=== PATIENT | female | born 1975 | race Caucasian/White ===

== ENCOUNTER → 2019-04-06 14:35 | Outpatient (CLI) | payer OTHER, SELFPAY ==
[2019-04-06 15:27] LABS: B Type Natriuretic Peptide < 100 (<100)
== END ==
PROVIDERS: PCP Nurse Practitioner Gerontology; Visit Provider Physician Assistant
DX: R60.0 Localized edema (principal)
CPT/HCPCS: 36415; 83880

== ENCOUNTER 2019-12-14 11:10 | Emergency (ER) | payer OTHER, SELFPAY ==
[2019-12-14 12:06] VITALS: BP 136/90; PULSE 76; RESP 13; TEMP 37; O2SAT 100
[2019-12-14 12:35] LABS: RBC Urine None Seen (0-5/HPF)
[2019-12-14 13:01] LABS: Bacteria Urine Many (>30); Culture Indicated Urine Specimen Cultured; Squamous Epithelial Cell Urine 1-5 /HPF (0-5/HPF); WBC Urine 1-5/HPF (0-5/HPF)
--- NOTE | 2019-12-14 13:17 | ED.FEMALEGU ---
HPI - Female Genitourinary General Chief complaint: Urogenital-Female Stated complaint: pelvic/ abdominal pain Time Seen by Provider: 12/14/19 12:58 Source: patient Mode of arrival: Ambulatory Limitations: no limitations History of Present Illness HPI Narrative: PATIENT IS A 44-YEAR-OLD FEMALE WHO PRESENTS WITH RIGHT-SIDED FLANK PAIN AND URINARY FREQUENCY. SHE FEELS LIKE SHE HAS INFECTION. THE LAST MONTH OR SO she has had left-sided flank pain which has felt like previous kidney stones. She says that pain has subsided significantly. She doesn't feel like it's there anymore she is not sure if she passed a kidney stone or not. However over the last 3 days she has had worsening right-sided flank pain. Pain does not radiate to her abdomen she has no abdominal pain no fever sweats or chills. MD Complaint: UTI Female Urogenital Radiation: R Flank Severity: mild Quality: Aching Duration: intermittent Relieving factors: none Related Data Home Medications Medication Instructions Recorded Confirmed amlodipine 10 mg tablet 10 mg PO DAILY 04/06/19 04/06/19 lisinopril 20 mg tablet 40 mg PO DAILY 04/06/19 04/06/19 norethindrone acetate-ethinyl 1 tab PO DAILY 04/06/19 04/06/19 estradiol 1.5 mg-30 mcg tablet Previous Rx's Medication Instructions Recorded sulfamethoxazole-trimethoprim 1 tab PO BID 7 Days #14 tab 12/14/19 [Bactrim DS] Allergies Allergy/AdvReac Type Severity Reaction Status Date / Time amoxicillin [AMOXICILLIN] Allergy Intermediate RASH Verified 04/06/19 13:41 cephalexin [CEPHALEXIN] Allergy Intermediate Rash Verified 04/06/19 13:41 ciprofloxacin [CIPROFLOXACIN] Allergy Intermediate RASH Verified 04/06/19 13:41 hydromorphone [HYDROMORPHONE] Allergy Mild Intractable Verified 04/06/19 13:41 nausea/emesis morphine [MORPHINE] Allergy Mild Instractable Verified 04/06/19 13:41 nausea Review of Systems Review of Systems Narrative: GENERAL: Denies chills, fatigue, malaise, fever, sweats, travel HEENT: Denies sinus pain, ear pain, sore throat, difficulty swallowing, neck pain RESPIRATORY: Denies dyspnea, cough, wheezing, hemoptysis, sputum. CARDIOVASCULAR: Denies chest pain, palpitations, orthopnea, edema GASTROINTESTINAL: Denies nausea, vomiting, abdominal pain, diarrhea, constipation, melena. : See HPI MUSCULOSKELETAL: Denies weakness, joint pain, or bony pain SKIN: No rash, no erythema, no pruritus NEUROLOGIC: Denies weakness, dizziness, headache, numbness, change in speech, confusion PSYCHIATRIC: No concerning psychosocial issues. 12 point review of systems is negative except for those stated above and HPI Patient History Medical History Hypertension (Acute) Nephrolithiasis (Acute) Ureterolithiasis (Acute) Substance Use Type: does not use Exam Initial Vital Signs Initial Vital Signs: Vital Signs Temperature 98.6 F 12/14/19 12:06 Pulse Rate 76 12/14/19 12:06 Respiratory Rate 13 12/14/19 12:06 Blood Pressure 136/90 12/14/19 12:06 Pulse Oximetry 100 12/14/19 12:06 GENERAL: Well-appearing, well-nourished and in no acute distress. HEENT: Head atraumatic,EOMI, pupils reactive CARDIOVASCULAR: Regular rate and rhythm without murmurs, rubs or gallops. RESPIRATORY: Breath sounds equal bilaterally, no wheezes rales or rhonchi. ABDOMEN: Soft, nontender. Normoactive bowel sounds all 4 quadrants. No guarding or rebound. RECTAL: Hemoccult-positive, no hemorrhoids, nontender : Mild right CVA tenderness no left CVA tenderness EXTREMITIES: Normal range of motion, no clubbing or edema. Neurovascularly intact NEUROLOGICAL: Alert and oriented x4.Normal gait and speech. SKIN: Warm, dry, no laceration, no petechiae, no rashes or lesions. Course Orders Ordered: ED Orders 12/14/19 12:00 Urine Culture Stat Urine Microscopic Stat Vital Signs Vital signs: Vital Signs - 8 hr 12/14/19 12:06 12/14/19 13:24 Temperature 98.6 F Pulse Rate 76 80 Respiratory Rate 13 16 Blood Pressure 136/90 Blood Pressure [Right Arm] 137/95 H Pulse Oximetry 100 98 MDM - Female Genitourinary Lab Data Attestation: I reviewed the patient's lab results. Labs: Lab Results 12/14/19 Range/Units 12:00 Urine RBC None seen (0-5/HPF) Urine WBC 1-5/hpf (0-5/HPF) Ur Squamous Epith Cells 1-5 /hpf (0-5/HPF) Urine Bacteria Many (>30) H (None) Ur Culture Indicated? Specimen cultured Point of Care Testing Test Results Negative Urine Dip Bedside Urine Glucose Negative Bedside Urine Bilirubin - Negative Bedside Urine Ketone - Negative Urine Specific [place] 1.010 Bedside Urine Occult Blood +/- Bedside Urine pH 6.0 Bedside Urine Protein - Negative Bedside Urine Urobilinogen - Negative Bedside Urine Nitrite - Negative Bedside Urine Leukocytes ++ 125 Esterase MDM Narrative Medical decision making narrative: Patient overall appears well vitals are within normal limits she is minimally tender on the right side she has significant leukocytes in her urine signs and symptoms consistent with infection although she does not appear septic. I discussed with her possible further workup in the emergency department versus close outpatient follow-up. At this time she agrees and requests to have conservative is treatment with antibiotics only and to return only if symptoms are getting worse. She is currently trying to switch PCPs, but think should be able to get in next week. Discharge Plan Departure Patient Disposition: Home Clinical Impression: UTI (urinary tract infection) Qualifiers: Urinary tract infection type: acute cystitis Hematuria presence: without hematuria Qualified Code(s): N30.00 - Acute cystitis without hematuria Discharge Date/Time: 12/14/19 13:44 Instructions: DI for Urinary Tract Infection (UTI) Activity Restrictions/Additional Instructions: *You have been diagnosed with hypertension UTI *What to do: Increase fluid intake pain control as needed at home *Continue to take medications as directed Bactrim 1 tablet twice a day for 7 days *Follow up with your primary care provider in 2-3 days *Return to ER if you should have increasing pain fever persistent nausea or vomiting or any new, worsening or concerning symptoms Prescriptions: New sulfamethoxazole-trimethoprim [Bactrim DS] 800-160 mg tablet 1 tab PO BID 7 Days Qty: 14 RF: 0 No Action amlodipine 10 mg tablet 10 mg PO DAILY RF: 0 Lucille 1.5/30 (21) 1.5-30 mg-mcg tablet 1 tab PO DAILY RF: 0 lisinopril 20 mg tablet 40 mg PO DAILY RF: 0 Referrals: Rani Donato ARNP [Primary Care Provider] - Max Fernandez MD [Family Provider] -
[2019-12-14 13:24] VITALS: BP 137/95; PULSE 80; RESP 16; O2SAT 98
== END 2019-12-14 13:44 | disposition home or self-care (01) ==
PROVIDERS: Emergency Provider Emergency Medicine; Family Provider Internal Medicine; PCP Nurse Practitioner Gerontology
DX: N30.00 Acute cystitis without hematuria (principal)
CPT/HCPCS: 81003; 81015; 81025; 87086; 99282; 99283

== ENCOUNTER → 2019-12-20 09:50 | Outpatient (CLI) | payer OTHER, SELFPAY ==
[2019-12-20 10:16] LABS: Bacteria Urine None Seen; WBC Urine None Seen (0-5/HPF)
[2019-12-20 12:50] LABS: Appearance Urine UA CLEAR; Bilirubin Urine UA NEGATIVE (NEGATIVE); Color Urine UA YELLOW; Glucose Urine UA NEGATIVE (Negative); Ketones Urine UA NEGATIVE (NEGATIVE); Leukocyte Esterase Urine UA NEGATIVE (NEGATIVE); Nitrite Urine UA NEGATIVE (Negative); Occult Blood Urine UA TRACE-INTACT (Negative); Protein Urine UA NEGATIVE (Negative); Urobilinogen Urine UA 0.2 E.U./dL (0.2)
[2019-12-20 13:24] LABS: Culture Indicated Urine Cult Not Indicated; RBC Urine 0-1/HPF (0-5/HPF); Squamous Epithelial Cell Urine 1-5 /HPF (0-5/HPF)
== END ==
PROVIDERS: Family Provider Internal Medicine; PCP Internal Medicine; Visit Provider Internal Medicine
DX: N30.90 Cystitis, unspecified without hematuria (principal)
CPT/HCPCS: 81001; 87086

== ENCOUNTER → 2020-01-02 09:52 | Outpatient (CLI) | payer OTHER, SELFPAY ==
[2020-01-02 11:03] LABS: Add Manual Diff / Slide Review NO; Basophils Absolute Auto 0 /uL (0-100); Basophils Percent Auto 0.7 % (0-2); Eosinophils Absolute Auto 0 /uL (0-450); Eosinophils Percent Auto 0.8 % (2-4); Hematocrit 37.7 % (36-46); Hemoglobin 12.8 g/dL (12.0-16.0); Lymphocytes Absolute Auto 1300 /uL (1100-4500); Lymphocytes Percent Auto 23.2 % (25-40); Mean Corpuscular HGB Conc 33.8 % (30-36); Mean Corpuscular Hemoglobin 33.5 PG (26-34); Monocytes Absolute Auto 300 /uL (0-900); Monocytes Percent Auto 5.6 % (3-14); Neutrophils Absolute Auto 3900 /uL (1500-7000); Neutrophils Percent Auto 69.7 % (50-75); Platelet Count 287 X10^3/uL (150-400); Red Blood Cell Count 3.81 X10^6/uL (4.0-5.2); Red Cell Distribution Width 13.1 % (11.6-14.8); White Blood Cell Count 5.6 X10^3/uL (4.5-11.0)
[2020-01-02 11:19] LABS: Alanine Aminotransferase 26 IU/L (<35); Albumin 4.4 g/dL (3.5-5.0); Albumin Globulin Ratio 1.3 (1.0-2.8); Alkaline Phosphatase 44 U/L (38-126); Aspartate Aminotransferase 31 IU/L (14-36); BUN Creatinine Ratio 16.7 (6-22); Bilirubin Total 0.3 mg/dL (0.2-1.3); Blood Urea Nitrogen 15 mg/dL (7-17); Calcium 9.3 mg/dL (8.4-10.2); Carbon Dioxide 26 mmol/L (22-32); Chloride 107 mmol/L (98-107); Cholesterol 173 mg/dL (140-199); Estimated Glomerular Filt Rate > 60.0 mL/min (>60); Globulin 3.4 g/dL (1.7-4.1); Glucose 98 mg/dL (70-100); HDL Cholesterol 94 mg/dL (40-60); HEMOLYSIS < 15 (0-50); LDL Cholesterol Calculated 59 mg/dL (<100); Potassium 4.2 mmol/L (3.4-5.1); Sodium 144 mmol/L (137-145); Total Protein 7.8 g/dL (6.3-8.2); Triglycerides 101 mg/dL (35-150)
[2020-01-02 12:15] LABS: TSH w/ Reflex to FT4 3.08 uIU/mL (0.47-4.68)
== END ==
PROVIDERS: Family Provider Internal Medicine; PCP Internal Medicine; Referring Provider Internal Medicine; Visit Provider Internal Medicine
DX: Z13.1 Encounter for screening for diabetes mellitus (principal); Z13.220 Encounter for screening for lipoid disorders; Z13.6 Encounter for screening for cardiovascular disorders; I10 Essential (primary) hypertension; N20.0 Calculus of kidney
CPT/HCPCS: 36415; 80053; 80061; 84443; 85025

== ENCOUNTER → 2020-06-15 15:03 | Outpatient (CLI) | payer OTHER, SELFPAY ==
[2020-06-15 19:31] LABS: Appearance Urine UA CLEAR; Bilirubin Urine UA NEGATIVE (NEGATIVE); Color Urine UA YELLOW; Glucose Urine UA NEGATIVE (Negative); Ketones Urine UA NEGATIVE (NEGATIVE); Leukocyte Esterase Urine UA 1+ (NEGATIVE); Nitrite Urine UA POSITIVE (Negative); Occult Blood Urine UA 2+ (Negative); Protein Urine UA NEGATIVE (Negative); Urobilinogen Urine UA 0.2 E.U./dL (0.2)
[2020-06-15 19:34] LABS: pH Urine UA 5.5 (4.5-8.0)
[2020-06-15 19:38] LABS: Bacteria Urine Many (>30); Culture Indicated Urine Specimen Cultured; RBC Urine 0-1/HPF (0-5/HPF); Squamous Epithelial Cell Urine 0-1 /HPF (0-5/HPF); WBC Urine 30-100/HPF (0-5/HPF); White Blood Cell Casts Urine 1-5/LPF
== END ==
PROVIDERS: Family Provider Internal Medicine; PCP Internal Medicine; Visit Provider Internal Medicine
DX: R30.0 Dysuria (principal)
CPT/HCPCS: 81001; 87077; 87086; 87186

== ENCOUNTER → 2020-07-01 14:20 | Outpatient (CLI) | payer OTHER, SELFPAY ==
[2020-07-01 16:02] LABS: Appearance Urine UA CLOUDY; Bilirubin Urine UA NEGATIVE (NEGATIVE); Color Urine UA YELLOW; Glucose Urine UA NEGATIVE (Negative); Ketones Urine UA NEGATIVE (NEGATIVE); Leukocyte Esterase Urine UA 2+ (NEGATIVE); Nitrite Urine UA POSITIVE (Negative); Occult Blood Urine UA 2+ (Negative); Protein Urine UA NEGATIVE (Negative); Urobilinogen Urine UA 0.2 E.U./dL (0.2)
[2020-07-01 16:09] LABS: RBC Urine 1-5/HPF (0-5/HPF); Squamous Epithelial Cell Urine 1-5 /HPF (0-5/HPF); WBC Urine >100/HPF (0-5/HPF)
[2020-07-01 16:10] LABS: Amorphous Sediment Urine 1+; Bacteria Urine Many (>30); Culture Indicated Urine Specimen Cultured
== END ==
PROVIDERS: Family Provider Internal Medicine; PCP Internal Medicine; Referring Provider Internal Medicine; Visit Provider Internal Medicine
DX: N30.00 Acute cystitis without hematuria (principal); R30.0 Dysuria; R82.90 Unspecified abnormal findings in urine
CPT/HCPCS: 81001; 87077; 87086; 87186

== ENCOUNTER → 2020-07-23 14:23 | Outpatient (CLI) | payer OTHER, SELFPAY ==
[2020-07-23 15:17] LABS: Bilirubin Urine UA NEGATIVE (NEGATIVE); Color Urine UA YELLOW; Glucose Urine UA NEGATIVE (Negative); Ketones Urine UA NEGATIVE (NEGATIVE); Leukocyte Esterase Urine UA 1+ (NEGATIVE); Nitrite Urine UA POSITIVE (Negative); Occult Blood Urine UA 2+ (Negative); Protein Urine UA NEGATIVE (Negative); Urobilinogen Urine UA 0.2 E.U./dL (0.2)
[2020-07-23 15:18] LABS: Appearance Urine UA SL CLOUDY
[2020-07-23 15:28] LABS: Amorphous Sediment Urine 1+; Bacteria Urine Many (>30); Culture Indicated Urine Specimen Cultured; Mucus Urine 1+ (Negative); RBC Urine 1-5/HPF (0-5/HPF); Squamous Epithelial Cell Urine 1-5 /HPF (0-5/HPF); WBC Urine >100/HPF (0-5/HPF)
== END ==
PROVIDERS: Family Provider Internal Medicine; PCP Internal Medicine; Referring Provider Internal Medicine; Visit Provider Internal Medicine
DX: R30.0 Dysuria (principal)
CPT/HCPCS: 81001; 87077; 87086; 87186

== ENCOUNTER 2020-10-13 02:42 | Emergency (ER) | payer OTHER, SELFPAY ==
[2020-10-13 02:45] VITALS: BP 138/92; PULSE 79; RESP 16; TEMP 36.9; O2SAT 97; BMI 25.0
--- NOTE | 2020-10-13 02:52 | ED_ITS ---
HPI - Extremity Injury (Lower) General Chief Complaint: Extremity Injury, Lower Stated Complaint: LEFT ANKLE/FOOT INJURY Time Seen by Provider: 10/13/20 02:43 Source: patient and family Mode of arrival: Wheelchair Limitations: no limitations History of Present Illness HPI Narrative: 44-year-old female nonsmoker with noncontributory medical history presents and wheelchair with her significant other and a chief complaint of significant pain in her left foot. Earlier this evening she was walking her dog when it pulled, and attempt to run toward another dog and she fell. She heard a pop but does not know where in her left lower extremity came from. She denies any head neck or back pain. Her pain is significant with any ambulation. She denies numbness, tingling or weakness. MD complaint: knee injury, foot injury and fall Onset (ago): hour(s) Injury: Left: knee and foot Type of Injury: blunt and inversion Place: home Severity: moderate Relieving factors: rest Exacerbating factors: weight bearing, movement and palpation Context: fall, direct blow and walking Associated symptoms: snap/pop sensation, swelling and unable to bear weight Other symptoms: none Treatments prior to arrival: cold therapy Related Data Home Medications Medication Instructions Recorded Confirmed multivitamin 1 tab PO DAILY 12/20/19 06/15/20 Previous Rx's Medication Instructions Recorded sertraline 50 mg tablet 50 mg PO DAILY #30 tab 12/20/19 metoprolol succinate 50 mg capsule 50 mg PO DAILY #90 each 01/10/20 sprinkle, ext. release 24 hr norethindrone acetate 1.5 1 tab PO DAILY #84 tab 02/24/20 mg-ethinyl estradiol 30 mcg tablet promethazine 12.5 mg tablet 12.5 mg PO Q6H PRN #30 tab 06/24/20 sulfamethoxazole 800 1 tab PO BID #14 tab 07/24/20 mg-trimethoprim 160 mg tablet trimethoprim 100 mg tablet 100 mg PO BEDTIME #30 tab 07/24/20 chlorthalidone 25 mg tablet 25 mg PO DAILY #30 tab 09/15/20 lisinopril 20 mg tablet 40 mg PO DAILY #90 tab 10/05/20 ketorolac 10 mg PO Q6H PRN #14 tab 10/13/20 Allergies Allergy/AdvReac Type Severity Reaction Status Date / Time amoxicillin [AMOXICILLIN] Allergy Intermediate RASH Verified 06/15/20 14:42 cephalexin [CEPHALEXIN] Allergy Intermediate Rash Verified 06/15/20 14:42 ciprofloxacin [CIPROFLOXACIN] Allergy Intermediate RASH Verified 06/15/20 14:42 hydromorphone [HYDROMORPHONE] Allergy Mild Intractable Verified 06/15/20 14:42 nausea/emesis morphine [MORPHINE] Allergy Mild Instractable Verified 06/15/20 14:42 nausea Review of Systems Constitutional Constitutional: Denies chills, Denies fatigue, Denies fever(s), Denies frequent falls, Denies lethargy and Denies weakness Eyes Eyes: Denies change in vision, Denies eye discharge, Denies irritation and Denies loss of vision ENT Ears, Nose, Mouth, and Throat: Denies change in voice, Denies dizziness, Denies neck pain, Denies sore throat and Denies throat swelling Cardiovascular Cardiovascular: Denies chest pain, Denies irregular heart rhythm, Denies lightheadedness, Denies palpitations, Denies dyspnea, Denies dyspnea on exertion and Denies orthopnea Respiratory Respiratory: Denies cough, Denies dyspnea, Denies dyspnea on exertion and Denies wheezing Gastrointestinal Gastrointestinal: Denies abdominal pain, Denies change in bowel habits, Denies diarrhea, Denies nausea and Denies vomiting Musculoskeletal Musculoskeletal: Reports arthralgias, Reports joint swelling, Denies neck pain and Denies numbness Integumentary/Breasts Skin/Breast: Denies pruritus, Denies erythema, Denies rash and Denies wounds Neurologic Neurologic: Denies behavioral changes, Denies confusion, Denies dizziness, Denies frequent falls, Denies loss of vision, Denies numbness and Denies weakness Psychiatric Psychiatric: Denies anxiety, Denies behavioral changes, Denies confusion, Denies depression, Denies homicidal ideation and Denies suicidal ideation Endocrine Endocrine: Denies fatigue, Denies flushing and Denies palpitations Hematologic/Lymphatic Hematologic/Lymphatic: Denies easy bruising Allergic/Immunologic Allergic/Immunologic: Denies urticaria, Denies throat swelling and Denies wheezing Patient History Medical History Abnormal Pap smear of cervix Hypertension Nephrolithiasis Ureterolithiasis Surgical History H/O lithotripsy Family History Family/Other Diabetes mellitus Social History Smoking Status: Never smoker Smoking Status: Never smoker Substance Use Type: does not use Exam Narrative Exam Narrative: GEN: AOx3 and in mild distress EYES: Pupils are equal, round, and reactive to light and accommodation. Extraoccular muscles are intact bilaterally. There is no subconjunctival hemorrhage or exudate. CHEST: Lungs are clear to auscultation bilaterally and free of wheezes, rales, or rhonchi. Heart rate is regular rhythm, there are no murmurs, clicks, rubs, or gallops. There is no chest wall tenderness. ABD: Abdomen is soft and nontender. There is no guarding or rebound. Bowel sounds are normal in all 4 quadrants. There is no mass or organomegaly. EXT: Left foot with dorsal swelling and ecchymosis. Pain to palpation. No pain on talus. No pain on proximal 5th metatarsal. No pain on palpation of lateral/medial malleolus. No pain with palpation of acchiles or palpable depression. No large knee effusion or ligamentous instability, however, there is tenderness to proximal fibula. Otherwise. Full painless ROM of all extremities with no loss of sensation or strength. SKIN: Warm, pink, and dry. No erythema or rash Initial Vital Signs Initial Vital Signs: Vital Signs Temperature 98.5 F 10/13/20 02:45 Pulse Rate 79 10/13/20 02:45 Respiratory Rate 16 10/13/20 02:45 Blood Pressure 138/92 H 10/13/20 02:45 Pulse Oximetry 97 10/13/20 02:45 Procedures Orthopedic Splinting/Casting Injury #1: Side: left Lower Extremity Injury Location: foot Lower Extremity Immobilizer: post-op shoe Other Orthopedic Equipment: crutches Post splinting neuro exam: intact Post splinting vascular exam: intact Placed by: Nursing Course Orders Ordered: ED Orders 10/13/20 02:53 XR foot LT min 3V Stat XR knee LT 3V Stat Discontinued Medications Ketorolac Tromethamine (Ketorolac 60 Mg/2 Ml Vial) 60 mg IM NOW ONE Stop: 10/13/20 03:54 Last Admin: 10/13/20 04:10 Dose: 60 mg Documented by: Vital Signs Vital signs: Vital Signs - 8 hr 10/13/20 02:45 Temperature 98.5 F Pulse Rate 79 Respiratory Rate 16 Blood Pressure 138/92 H Pulse Oximetry 97 MDM - Extremity Injury (Lower) Imaging Data Extremity x-ray #1: Attestation: I personally reviewed and interpreted this imaging study as follows: My Impression: No obvious bony abnormality of foot Radiologist's Impression: No acute bony abnormality Discharge Plan Departure Patient Disposition: Home Clinical Impression: Foot sprain Qualifiers: Encounter type: initial encounter Laterality: left Qualified Code(s): S93.602A - Unspecified sprain of left foot, initial encounter Instructions: DI for Foot Sprain Activity Restrictions/Additional Instructions: *You have been diagnosed with [foot sprain and possible ligamentous injury. X- rays were unremarkable show no fracture or dislocation.] *What to do: *Take medications as directed *Follow up with your primary care provider in 2-3 days, call for an appointment. Let them know you were seen in the Emergency Department and that we ask that you be seen in follow up *No weight bearing until follow up. *Return to ER if you should have any new, worsening or concerning symptoms Prescriptions: New ketorolac 10 mg tablet 10 mg PO Q6H PRN (Reason: pain) Qty: 14 RF: 0 No Action Lucille 1.530 (21) 1.5-30 mg-mcg tablet 1 tab PO DAILY Qty: 84 RF: 2 promethazine 12.5 mg tablet 12.5 mg PO Q6H PRN (Reason: nausea) Qty: 30 RF: 0 trimethoprim 100 mg tablet 100 mg PO BEDTIME Qty: 30 RF: 1 sulfamethoxazole-trimethoprim 800-160 mg tablet 1 tab PO BID Qty: 14 RF: 0 chlorthalidone 25 mg tablet 25 mg PO DAILY Qty: 30 RF: 5 lisinopril 20 mg tablet 40 mg PO DAILY Qty: 90 RF: 1 metoprolol succinate 50 mg capsule,sprinkle,ER 24hr 50 mg PO DAILY Qty: 90 RF: 3 multivitamin Tablet 1 tab PO DAILY RF: 0 sertraline 50 mg tablet 50 mg PO DAILY Qty: 30 RF: 7 Referrals: Max Fernandez MD [Primary Care Provider] - Stand Alone Forms: Work Release Note
--- NOTE | 2020-10-13 02:53 | DI.RAD.S_ITS ---
PROCEDURE: XR FOOT LT MIN 3V INDICATIONS: fall with severe pain, swelling, dorsum of foot TECHNIQUE: 3 views of the foot were acquired. COMPARISON: None. FINDINGS: Bones: No fractures or dislocations. No suspicious bony lesions. Soft tissues: No tibiotalar joint effusion. Achilles tendon appears normal. IMPRESSION: No fracture. No osseous lesion. If symptoms and/or clinical suspicion for pathology persists, further assessment with repeat radiographs (7-10 days) or advanced imaging (e.g. CT, MRI or bone scan) may be helpful. Dictated by: Lizzy Araiza MD, PhD on 10/13/2020 at 7:10 Approved by: Lizzy Araiza MD, PhD on 10/13/2020 at 7:14
--- NOTE | 2020-10-13 02:53 | DI.RAD.S_ITS ---
PROCEDURE: XR KNEE LT 3V INDICATIONS: fall with lateral knee pain TECHNIQUE: 3 views of the knee were acquired. COMPARISON: None. FINDINGS: Bones: No fractures or dislocations. No suspicious bony lesions. Soft tissues: No joint effusion. No suspicious soft tissue calcifications. IMPRESSION: No fracture. No osseous lesion. If symptoms and/or clinical suspicion for pathology persists, further assessment with repeat radiographs (7-10 days) or advanced imaging (e.g. CT, MRI or bone scan) may be helpful. Dictated by: Lizzy Araiza MD, PhD on 10/13/2020 at 7:27 Approved by: Lizzy Araiza MD, PhD on 10/13/2020 at 7:27
--- NOTE | 2020-10-13 03:40 | PC.NURSE ---
Post Op shoe applied per MD order
[2020-10-13] MEDS: KETOROLAC 60 MG/2 ML VIAL IM (04:10)
[2020-10-13 04:20] VITALS: BP 121/77; PULSE 73; RESP 18; O2SAT 97
== END 2020-10-13 04:22 | disposition home or self-care (01) ==
PROVIDERS: Emergency Provider Emergency Medicine; Family Provider Internal Medicine; PCP Internal Medicine
DX: S93.602A Unspecified sprain of left foot, initial encounter (principal); W19.XXXA Unspecified fall, initial encounter
CPT/HCPCS: 73562; 73630; 96372; 99283; STOP; J1885

== ENCOUNTER → 2021-09-03 11:10 | Outpatient (CLI) | payer OTHER, SELFPAY ==
[2021-09-03 12:10] LABS: Add Manual Diff / Slide Review NO; Basophils Absolute Auto 0 /uL (0-100); Basophils Percent Auto 0.5 % (0-2); Eosinophils Absolute Auto 0 /uL (0-450); Eosinophils Percent Auto 0.5 % (2-4); Hematocrit 35.4 % (36-46); Hemoglobin 11.7 g/dL (12.0-16.0); Lymphocytes Absolute Auto 1400 /uL (1100-4500); Lymphocytes Percent Auto 18.9 % (25-40); Mean Corpuscular HGB Conc 33.1 % (30-36); Mean Corpuscular Hemoglobin 33.3 PG (26-34); Mean Corpuscular Volume 100.6 fL (80-100); Monocytes Absolute Auto 300 /uL (0-900); Neutrophils Absolute Auto 5700 /uL (1500-7000); Neutrophils Percent Auto 76.1 % (50-75); Platelet Count 297 X10^3/uL (150-400); Red Blood Cell Count 3.51 X10^6/uL (4.0-5.2); Red Cell Distribution Width 13.3 % (11.6-14.8); White Blood Cell Count 7.5 X10^3/uL (4.5-11.0)
[2021-09-03 12:49] LABS: Erythrocyte Sedimentation Rate 16 MM/HR (0-20)
[2021-09-03 13:01] LABS: Alanine Aminotransferase 16 IU/L (<35); Albumin Globulin Ratio 1.5 (1.0-2.8); Alkaline Phosphatase 39 U/L (38-126); Aspartate Aminotransferase 24 IU/L (14-36); BUN Creatinine Ratio 16.3 (6-22); Bilirubin Total 0.3 mg/dL (0.2-1.3); Blood Urea Nitrogen 16 mg/dL (7-17); C-Reactive Protein Quant 2.6 mg/dL (<1.0); Calcium 9.4 mg/dL (8.4-10.2); Carbon Dioxide 27 mmol/L (22-32); Chloride 103 mmol/L (98-107); Creatine Kinase 60 U/L (30-135); Estimated Glomerular Filt Rate > 60.0 mL/min (>60); Globulin 2.6 g/dL (1.7-4.1); Glucose 99 mg/dL (70-100); HEMOLYSIS < 15 (0-50); Potassium 4.2 mmol/L (3.4-5.1); Sodium 138 mmol/L (137-145); Total Protein 6.6 g/dL (6.3-8.2)
[2021-09-03 13:40] LABS: TSH w/ Reflex to FT4 2.02 uIU/mL (0.47-4.68)
== END ==
PROVIDERS: Family Provider Internal Medicine; PCP Internal Medicine; Referring Provider Internal Medicine; Visit Provider Internal Medicine
DX: M25.50 Pain in unspecified joint (principal); M35.3 Polymyalgia rheumatica; M79.10 Myalgia, unspecified site; I10 Essential (primary) hypertension
CPT/HCPCS: 36415; 80053; 82550; 84443; 85025; 85651; 86140

== ENCOUNTER 2021-10-18 15:14 | Emergency (ER) | payer OTHER, SELFPAY ==
[2021-10-18 15:17] VITALS: BP 137/101; PULSE 92; RESP 18; TEMP 36.7; O2SAT 100; BMI 25.2
--- NOTE | 2021-10-18 16:10 | ED_ITS ---
HPI - Allergic Reaction General Chief complaint: Allergic Reaction Stated complaint: ALLERGIC REACTION DIFFICULT BREATHING Time Seen by Provider: 10/18/21 15:49 History of Present Illness HPI narrative: Onset 1:30 p.m. today. Patient states had allergic reaction. It is her 4th episode this year. Has not been worked up for this. Today event worse than the previous 3. She does see Dr[address] Fernandez, her primary care physician for other problems. Is on prednisone for rheumatica, started medication 4 weeks ago. Patient otherwise denies any new products. Starts with epigastric abdominal pain with watery diarrhea and vomiting and then numbness to the roof of her mouth. No trouble breathing. No rash or itching. Patient feeling much better now. Took Benadryl prior to arrival. [place] her throat getting tight. That has resolved. Related Data Previous Rx's Medication Instructions Recorded lisinopril 20 mg tablet 40 mg PO DAILY #90 tab 04/22/21 chlorthalidone 25 mg tablet 25 mg PO DAILY #90 tab 06/14/21 norethindrone acetate 1.5 1 tab PO DAILY #84 tab 06/29/21 mg-ethinyl estradiol 30 mcg tablet (Lucille) bupropion HCl 300 mg 24 hr tablet, 300 mg PO QAM #90 tab 09/03/21 extended release prednisone 20 mg tablet 20 mg PO DAILY #30 tab 09/03/21 famotidine 20 mg tablet (Pepcid) 20 mg PO BID #20 tab 10/18/21 Allergies Allergy/AdvReac Type Severity Reaction Status Date / Time amoxicillin [AMOXICILLIN] Allergy Intermediate RASH Verified 09/03/21 10:38 cephalexin [CEPHALEXIN] Allergy Intermediate Rash Verified 09/03/21 10:38 ciprofloxacin [CIPROFLOXACIN] Allergy Intermediate RASH Verified 09/03/21 10:38 hydromorphone [HYDROMORPHONE] Allergy Mild Intractable Verified 09/03/21 10:38 nausea/emesis morphine [MORPHINE] Allergy Mild Instractable Verified 09/03/21 10:38 nausea Review of Systems Review of Systems Narrative: GENERAL: Denies chills, fatigue, malaise, fever, sweats. HEENT: Denies sinus pain, ear pain, sore throat RESPIRATORY: Denies dyspnea, cough CARDIOVASCULAR: Denies chest pain, palpitations GASTROINTESTINAL: Positive for nausea vomiting, abdominal pain, diarrhea : Denies dysuria, frequency, hematuria MUSCULOSKELETAL: denies muscle or bony pain SKIN: Denies rash, skin lesions NEUROLOGIC: Denies weakness, numbness ROS Unobtainable: All systems reviewed & are unremarkable except as noted in HPI and below Patient History Medical History Abnormal Pap smear of cervix Hypertension Nephrolithiasis Primary osteoarthritis of hands, bilateral Ureterolithiasis Surgical History H/O lithotripsy Family History Family/Other Diabetes mellitus Social History Smoking Status: Never smoker Smoking Status: Never smoker alcohol intake frequency: a few times a month Substance Use Type: marijuana Exam Narrative Exam Narrative: GENERAL: in no distress, not toxic not dyspneic HEAD: Normocephalic. EYES: Pupils equal round No scleral icterus. ENT: Mucous membranes moist. No tongue swelling intraoral swelling. No drooling. NECK: Trachea midline. CARDIOVASCULAR: Regular rate and rhythm without murmurs RESPIRATORY: Clear to auscultation. Breath sounds equal bilaterally. No wheezes, rales, or rhonchi. Speaking full sentences. In no respiratory distress. GASTROINTESTINAL: Abdomen soft, non-tender, bowel sounds present. No peritoneal signs. EXTREMITIES: No gross deformities. BACK: No flank tenderness. NEURO: AOx4. SKIN: Warm and dry, no rash on face or hands/arms PSYCH: Not anxious, is cooperative Initial Vital Signs Initial Vital Signs: Vital Signs Temperature 98.1 F 10/18/21 15:17 Pulse Rate 92 H 10/18/21 15:17 Respiratory Rate 18 10/18/21 15:17 Blood Pressure 137/101 H 10/18/21 15:17 Pulse Oximetry 100 10/18/21 15:17 Course Course Course Narrative: No new issues during course of stay Orders Ordered: Discontinued Medications Famotidine (Famotidine 20 Mg/2 Ml Vial) 20 mg IV NOW BUCK Methylprednisolone (Methylprednisolone 125 Mg/2 Ml Vial) 125 mg IV NOW ONE Stop: 10/18/21 16:11 Last Admin: 10/18/21 16:46 Dose: 125 mg Documented by: BTONER Reevaluation(s) Reevaluation #1: Patient feeling much better after treatment. Currently no complaints. No abdominal pain no vomiting diarrhea no oral numbness. No trouble breathing. Time: 16:51 Vital Signs Vital signs: Vital Signs - 8 hr 10/18/21 15:17 Temperature 98.1 F Pulse Rate 92 H Respiratory Rate 18 Blood Pressure 137/101 H Pulse Oximetry 100 MDM - Allergic Reaction Differential Diagnosis Differential diagnosis: Likely anaphylaxis, allergic reaction, angioedema and contact dermatitis MDM Narrative Medical decision making narrative: Appropriate for discharge home. Patient not toxic. Symptoms are resolved. Patient agrees for follow-up with her primary care for allergy testing and possible GI evaluation for intestinal angioedema. Return precautions reviewed with her. She desires discharge home. Discharge Plan Departure Patient Disposition: Home Clinical Impression: Allergic reaction Instructions: Allergen Skin Testing Activity Restrictions/Additional Instructions: Return if worse if any questions or concerns or if any trouble breathing. Be sure to see family doctor, call office today for appointment for allergy testing and referral to Gastroenterology. Prescriptions: New famotidine [Pepcid] 20 mg tablet 20 mg PO BID Qty: 20 0RF No Action lisinopril 20 mg tablet 40 mg PO DAILY Qty: 90 2RF chlorthalidone 25 mg tablet 25 mg PO DAILY Qty: 90 5RF Lucille 1.5/30 (21) 1.5-30 mg-mcg tablet 1 tab PO DAILY Qty: 84 2RF prednisone 20 mg tablet 20 mg PO DAILY Qty: 30 3RF bupropion HCl 300 mg tablet extended release 24 hr 300 mg PO QAM Qty: 90 3RF Referrals: Max Fernandez MD [Primary Care Provider] -
[2021-10-18] MEDS: methylPREDNISolone 125 MG/2 ML VIAL IV (16:46)
[2021-10-18 17:04] VITALS: BP 134/64; PULSE 85; RESP 16; O2SAT 97
--- NOTE | 2021-10-18 17:04 | PC.NURSE ---
pt states feeling better
== END 2021-10-18 17:04 | disposition home or self-care (01) ==
PROVIDERS: Emergency Provider Emergency Medicine; Family Provider Internal Medicine; PCP Internal Medicine
DX: T78.40XA Allergy, unspecified, initial encounter (principal)
CPT/HCPCS: 36415; 96374; 99284; J2930

== ENCOUNTER → 2022-06-07 10:30 | Outpatient (CLI) | payer OTHER, SELFPAY ==
--- NOTE | 2022-06-07 11:55 | DI.CT.S_ITS ---
PROCEDURE: CT CHEST HIGH RESOLUTION INDICATIONS: Interstitial pulmonary disease, unspecified TECHNIQUE: Noncontrast 1.0 and 5.0 mm thick contiguous axial sections from the pulmonary apex to the posterior costophrenic angles, with 7 mm thick coronal and sagittal MIP reformats. 1 mm thick dynamic expiratory images acquired through the upper, mid, and lower lungs. 1.0 mm thick axial sections acquired from the magan to the posterior costophrenic angles in the prone end-inspiration position. For radiation dose reduction, the following was used: automated exposure control, adjustment of mA and/or kV according to patient size. COMPARISON: 03/01/2022 CT FINDINGS: Image quality: Excellent. Lungs: No evidence of air trapping, reticulation, or significant fibrosis. No consolidation. Pleura: No pleural effusions or pneumothorax. Mediastinum: Heart size is normal. No pericardial effusion. Thoracic aorta and central pulmonary arteries are normal in size. Esophagus is normal in caliber. Bones and chest wall: No suspicious bony lesions. No vertebral body compression fractures. Abdomen: Left adrenal myelolipoma. Suspected hepatic steatosis. IMPRESSION: No significant pulmonary consolidation, reticulation, fibrosis, or air trapping. Dictated by: Kumar Mcdonald M.D. on 06/07/2022 at 12:49 Approved by: Kumar Mcdonald M.D. on 06/07/2022 at 13:21
== END ==
LOC: CT 10:31
PROVIDERS: Family Provider Internal Medicine; PCP Internal Medicine; Referring Provider Internal Medicine Pulmonary Disease; Visit Provider Internal Medicine Pulmonary Disease
DX: J84.9 Interstitial pulmonary disease, unspecified (principal)
CPT/HCPCS: 71250

== ENCOUNTER 2023-02-06 08:01 | Emergency (ER) | payer OTHER, SELFPAY ==
[2023-02-06] VITALS (7 sets, daily range): BP systolic 114–141; BP diastolic 65–88; PULSE 100–111; RESP 17; TEMP 36.4; O2SAT 97–99; BMI 27.6
--- NOTE | 2023-02-06 08:11 | DI.RAD.S_ITS ---
PROCEDURE: XR CHEST 2V INDICATIONS: shortness of breath TECHNIQUE: 2 views of the chest were acquired. COMPARISON: [facility], , CHEST 2 VIEW, 05/02/2017, 11:14. FINDINGS: Surgical changes and devices: None. Lungs and pleura: Lungs are clear. No pleural effusions or pneumothorax. Mediastinum: Mediastinal contours are normal. Heart size is normal. Bones and chest wall: No suspicious bony abnormalities. Soft tissues appear unremarkable. IMPRESSION: No acute pulmonary process. Dictated by: Mckenzie Gotti M.D. on 02/06/2023 at 8:59 Approved by: Mckenzie Gotti M.D. on 02/06/2023 at 9:05
--- NOTE | 2023-02-06 08:24 | ED_ITS ---
HPI - General Adult General Chief complaint: Upper Respiratory Symptoms Stated complaint: SOB/dizzy/N/ T-2 Time Seen by Provider: 02/06/23 08:19 Source: patient and family Mode of arrival: Ambulatory Limitations: no limitations History of Present Illness HPI narrative: Patient is a 47-year-old female who is here for evaluation of 2 days of chest pressure and shortness of breath. She states she thinks she has the upper respiratory illness that has been going around however this morning she vomited. This was not associated with coughing. She is not had any fevers. About a week ago she did have some sinus congestion sore throat but that has resolved. No abdominal pain. No lower extremity swelling. She states she feels like her symptoms are worse today than what they were yesterday. She is on 1 mg of dexamethasone on a daily basis because of an autoimmune issue. Has not tried anything for her symptoms prior to arrival. Related Data Home Medications Medication Instructions Recorded Confirmed dexamethasone 1 mg tablet 1 mg PO DAILY 05/04/22 02/06/23 metronidazole 0.75 % topical cream 1 applic topical BID rosacea 12/20/22 12/20/22 Previous Rx's Medication Instructions Recorded chlorthalidone 25 mg tablet 25 mg PO DAILY #90 tabs 11/01/22 venlafaxine 75 mg capsule,extended 75 mg PO DAILY #90 caps 12/20/22 release 24 hr lisinopril 20 mg tablet 40 mg PO DAILY #180 tabs 01/02/23 norethindrone acetate 1.5 1 tab PO DAILY #84 tabs 01/02/23 mg-ethinyl estradiol 30 mcg tablet (Lucille) albuterol sulfate 90 mcg/actuation 2 puff inhalation Q4-6H PRN 02/06/23 aerosol inhaler (ProAir HFA) shortness of breath or wheezing #8.5 grams Allergies Allergy/AdvReac Type Severity Reaction Status Date / Time amoxicillin [AMOXICILLIN] Allergy Intermediate RASH Verified 02/06/23 08:15 cephalexin [CEPHALEXIN] Allergy Intermediate Rash Verified 02/06/23 08:15 ciprofloxacin [CIPROFLOXACIN] Allergy Intermediate RASH Verified 02/06/23 08:15 hydromorphone [HYDROMORPHONE] Allergy Mild Intractable Verified 02/06/23 08:15 nausea/emesis morphine [MORPHINE] Allergy Mild Instractable Verified 02/06/23 08:15 nausea Review of Systems Review of Systems ROS Unobtainable: All systems reviewed & are unremarkable except as noted in HPI and below Patient History Medical History Abnormal Pap smear of cervix Ankylosing spondylitis Hypertension Nephrolithiasis Primary osteoarthritis of hands, bilateral Ureterolithiasis Surgical History H/O lithotripsy Family History Family/Other Diabetes mellitus Social History Smoking Status: Never smoker Smoking Status: Never smoker alcohol intake frequency: a few times a month Substance Use Type: marijuana Exam Initial Vital Signs Initial Vital Signs: Vital Signs Temperature 97.5 F L 02/06/23 08:12 Pulse Rate 111 H 02/06/23 08:12 Respiratory Rate 17 02/06/23 08:12 Blood Pressure 141/88 H 02/06/23 08:12 Pulse Oximetry 98 02/06/23 08:12 Oxygen Delivery Method Room Air 02/06/23 08:12 Const General: cooperative, comfortable and No ill appearing HENMT Head: normal to inspection and normocephalic Resp Effort & Inspection: normal respiratory effort Auscultation: clear to auscultation bilaterally Cardio Rate: regular rate GI Inspection: normal to inspection Skin General: no rashes or lesions noted Neuro General: patient alert and patient awake Extrem General: capillary refill normal Course Orders Ordered: ED Orders 02/06/23 08:11 Chest [XR chest 2V] Stat EKG-12 Lead Stat 02/06/23 08:20 Covid-19 + FLU A/B + RSV - PCR Stat 02/06/23 08:45 Complete Blood Count AUTO DIFF Stat Comprehensive Metabolic Panel Stat D Dimer Stat Lipase Stat Troponin & CK Cardiac Panel Stat 02/06/23 09:29 CT angio chest PE protocol Stat Vital Signs Vital signs: Vital Signs - 8 hr 02/06/23 08:12 02/06/23 08:50 02/06/23 09:00 Temperature 97.5 F L Pulse Rate 111 H 100 H 100 H Respiratory Rate 17 Blood Pressure 141/88 H Pulse Oximetry 98 98 97 Oxygen Delivery Method Room Air Room Air 02/06/23 09:30 02/06/23 09:31 Temperature Pulse Rate 103 H Respiratory Rate Blood Pressure 120/83 Pulse Oximetry 99 Oxygen Delivery Method Room Air Medical Decision Making Lab Data Lab results reviewed: Yes I reviewed the patient's lab results. 02/06/23 08:45 02/06/23 08:45 Labs: Lab Results 02/06/23 02/06/23 02/06/23 Range/Units 08:20 08:45 08:45 WBC 11.4 H (4.5-11.0) X10^3/uL RBC 3.56 L (4.0-5.2) X10^6/uL Hgb 12.3 (12.0-16.0) g/dL Hct 36.2 (36-46) % MCV 101.9 H (80-100) fL MCH 34.6 H (26-34) PG MCHC 33.9 (30-36) % RDW 14.9 H (11.6-14.8) % Plt Count 242 (150-400) X10^3/uL Neut % (Auto) 78.3 H (50-75) % Lymph % (Auto) 15.9 L (25-40) % [place] % (Auto) 4.4 (3-14) % Eos % (Auto) 0.7 L (2-4) % Baso % (Auto) 0.7 (0-2) % Neut # (Auto) 9000 H (7299-2147) /uL Lymph # (Auto) 1800 (4164-2183) /uL [place] # (Auto) 500 (0-900) /uL Eos # (Auto) 100 (0-450) /uL Baso # (Auto) 100 (0-100) /uL D-Dimer (<500) ng/ml Sodium 136 L (137-145) mmol/L Potassium 3.4 (3.4-5.1) mmol/L Chloride 99 (98-107) mmol/L Carbon Dioxide 29 (22-32) mmol/L BUN 15 (7-17) mg/dL Creatinine 1.02 (0.52-1.04) mg/dL Estimated GFR > 60 (>60) mL/min BUN/Creatinine Ratio 14.7 (6-22) Glucose 107 H (70-100) mg/dL Calcium 8.2 L (8.4-10.2) mg/dL Total Bilirubin 0.6 (0.2-1.3) mg/dL AST 35 (14-36) IU/L ALT 36 H (<35) IU/L Alkaline Phosphatase 43 (38-126) U/L Total Creatine Kinase 66 (30-135) U/L CK-MB (CK-2) TNP CK-MB (CK-2) Rel Index TNP Troponin I < 0.012 (0.01-0.034) ng/mL Total Protein 6.7 (6.3-8.2) g/dL Albumin 3.7 (3.5-5.0) g/dL Globulin 3.0 (1.7-4.1) g/dL Albumin/Globulin Ratio 1.2 (1.0-2.8) Lipase 89 (23-300) U/L SARS-CoV-2 (PCR) Negative (Negative) Influenza A (RT-PCR) Flu a negative (NEGATIVE) Influenza B (RT-PCR) Flu b negative (NEGATIVE) RSV (PCR) Negative (Negative) 02/06/23 Range/Units 08:45 WBC (4.5-11.0) X10^3/uL RBC (4.0-5.2) X10^6/uL Hgb (12.0-16.0) g/dL Hct (36-46) % MCV (80-100) fL MCH (26-34) PG MCHC (30-36) % RDW (11.6-14.8) % Plt Count (150-400) X10^3/uL Neut % (Auto) (50-75) % Lymph % (Auto) (25-40) % [place] % (Auto) (3-14) % Eos % (Auto) (2-4) % Baso % (Auto) (0-2) % Neut # (Auto) (8225-6116) /uL Lymph # (Auto) (5189-9371) /uL [place] # (Auto) (0-900) /uL Eos # (Auto) (0-450) /uL Baso # (Auto) (0-100) /uL D-Dimer 888 H (<500) ng/ml Sodium (137-145) mmol/L Potassium (3.4-5.1) mmol/L Chloride (98-107) mmol/L Carbon Dioxide (22-32) mmol/L BUN (7-17) mg/dL Creatinine (0.52-1.04) mg/dL Estimated GFR (>60) mL/min BUN/Creatinine Ratio (6-22) Glucose (70-100) mg/dL Calcium (8.4-10.2) mg/dL Total Bilirubin (0.2-1.3) mg/dL AST (14-36) IU/L ALT (<35) IU/L Alkaline Phosphatase (38-126) U/L Total Creatine Kinase (30-135) U/L CK-MB (CK-2) CK-MB (CK-2) Rel Index Troponin I (0.01-0.034) ng/mL Total Protein (6.3-8.2) g/dL Albumin (3.5-5.0) g/dL Globulin (1.7-4.1) g/dL Albumin/Globulin Ratio (1.0-2.8) Lipase (23-300) U/L SARS-CoV-2 (PCR) (Negative) Influenza A (RT-PCR) (NEGATIVE) Influenza B (RT-PCR) (NEGATIVE) RSV (PCR) (Negative) Imaging Data Chest x-ray: Radiologist's Impression: ROCEDURE:? XR CHEST 2V ? INDICATIONS:? shortness of breath ? TECHNIQUE:? 2 views of the chest were acquired.? ? COMPARISON:? [facility], CHEST 2 VIEW, 05/02/2017, 11:14. ? FINDINGS:? ? Surgical changes and devices:? None.? ? Lungs and pleura:? Lungs are clear.? No pleural effusions or pneumothorax.? ? Mediastinum:? Mediastinal contours are normal.? Heart size is normal.? ? Bones and chest wall:? No suspicious bony abnormalities.? Soft tissues appear unremarkable.? ? IMPRESSION:? No acute pulmonary process. CT scan - chest: Radiologist's Impression: PROCEDURE:? CT ANGIO CHEST PE PROTOCOL ? INDICATIONS:? tachycardia, SOB, Chest pressure ? TECHNIQUE:? After the administration of intravenous contrast, 2 mm thick sections acquired from the pulmonary apices to the posterior costophrenic angles.? 3-dimensional maximum intensity projection (MIP) coronal and sagittal reformats were then acquired through the thorax.? For radiation dose reduction, the following was used:? automated exposure control, adjustment of mA and/or kV according to patient size.? ? COMPARISON:? [facility], CT, CT ANGIO CHEST PE, 03/01/2022, 14:55.? [facility], CT, CT CHEST HIGH RESOLUTION, 06/07/2022, 10:53.? [facility], CR, XR CHEST 2V, 02/06/2023, 8:16. ? FINDINGS:? Image quality:? Excellent.? ? Pulmonary arteries:? Pulmonary arteries are normal in size, and demonstrate no intraluminal filling defects to suggest central pulmonary embolism.? ? Lungs and pleura:? Lungs are clear.? No pleural effusions or pneumothorax.? Central and peripheral airways are patent.? ? Mediastinum:? Heart size is normal, without pericardial effusion.? No mediastinal or hilar adenopathy.? Thoracic aorta is normal in caliber and enhancement.? Esophagus is normal in caliber, without hiatal hernia.? ? Bones and chest wall:? No suspicious bony lesions.? Ribs and thoracic spine appear intact throughout.? Thyroid gland demonstrates no significant abnormality.? No axillary or supraclavicular adenopathy.? ? Abdomen:? A lipid rich left adrenal nodule is again seen, measuring -28 Hounsfield units and 1.7 cm. The visualized portions of the upper abdominal structures are ot herwise unremarkable for imaging technique. ? ? IMPRESSION:? Negative for pulmonary embolism. ? Clear lungs. ? Additional findings:? Lipid rich left adrenal adenoma ECG Data Attestation: I personally reviewed and interpreted this ECG as follows: Interpretation: Sinus rhythm Ventricular rate 95 Normal axis Normal QRS Normal QTC No ST T wave changes MDM Narrative Medical decision making narrative: Patient is nontoxic. Is not hypoxic. CT scan does not show any signs of PE nor pneumonia. Her limited respiratory panel was negative although I do suspect that this is a viral respiratory illness. Not toxic. No indication for antibiotics. Will discharge patient home with an inhaler as she states she occasionally gets issues with shortness of breath to see if this does not help. Will have her keep her current dose of Decadron. She was given strict return precautions. She expressed understanding and agreement. Discharge Plan Departure Patient Disposition: Home Clinical Impression: Upper respiratory infection, viral Instructions: DI for Viral Upper Respiratory Infection -- Adult Activity Restrictions/Additional Instructions: Continue to take all of your medications as directed. Contact your primary doctor for follow-up. You can try [id number] cough and cold preparations like we discussed. Return to the emergency department for any new symptoms. Prescriptions: New albuterol sulfate [ProAir HFA] 90 mcg/actuation HFA aerosol inhaler 2 puff inhalation Q4-6H PRN (Reason: shortness of breath or wheezing) Qty: 8.5 0RF No Action chlorthalidone 25 mg tablet 25 mg PO DAILY Qty: 90 0RF lisinopril 20 mg tablet 40 mg PO DAILY Qty: 180 3RF Lucille 1.5/30 (21) 1.5-30 mg-mcg tablet 1 tab PO DAILY Qty: 84 0RF metronidazole 0.75 % cream 1 applic topical BID venlafaxine 75 mg capsule,extended release 24hr 75 mg PO DAILY Qty: 90 3RF dexamethasone 1 mg tablet 1 mg PO DAILY Referrals: Max Fernandez MD [Primary Care Provider] - Stand Alone Forms: Patient Portal/API, Work Release Note
[2023-02-06 08:50] LABS: Add Manual Diff / Slide Review NO; Basophils Absolute Auto 100 /uL (0-100); Basophils Percent Auto 0.7 % (0-2); Eosinophils Absolute Auto 100 /uL (0-450); Eosinophils Percent Auto 0.7 % (2-4); Hematocrit 36.2 % (36-46); Hemoglobin 12.3 g/dL (12.0-16.0); Lymphocytes Absolute Auto 1800 /uL (1100-4500); Lymphocytes Percent Auto 15.9 % (25-40); Mean Corpuscular HGB Conc 33.9 % (30-36); Mean Corpuscular Hemoglobin 34.6 PG (26-34); Mean Corpuscular Volume 101.9 fL (80-100); Monocytes Absolute Auto 500 /uL (0-900); Monocytes Percent Auto 4.4 % (3-14); Neutrophils Absolute Auto 9000 /uL (1500-7000); Neutrophils Percent Auto 78.3 % (50-75); Platelet Count 242 X10^3/uL (150-400); Red Blood Cell Count 3.56 X10^6/uL (4.0-5.2); Red Cell Distribution Width 14.9 % (11.6-14.8); White Blood Cell Count 11.4 X10^3/uL (4.5-11.0)
[2023-02-06 08:59] LABS: D Dimer 888 ng/ml (<500)
[2023-02-06 09:07] LABS: COVID-19 CEPHEID 4-PLEX PCR Negative (Negative); Influenza A - CEPHEID Flu A NEGATIVE (NEGATIVE); Influenza B - CEPHEID Flu B NEGATIVE (NEGATIVE); Respiratory Syncytial Virus Negative (Negative)
[2023-02-06 09:09] LABS: Alanine Aminotransferase 36 IU/L (<35); Albumin 3.7 g/dL (3.5-5.0); Albumin Globulin Ratio 1.2 (1.0-2.8); Alkaline Phosphatase 43 U/L (38-126); Aspartate Aminotransferase 35 IU/L (14-36); BUN Creatinine Ratio 14.7 (6-22); Bilirubin Total 0.6 mg/dL (0.2-1.3); Blood Urea Nitrogen 15 mg/dL (7-17); Calcium 8.2 mg/dL (8.4-10.2); Carbon Dioxide 29 mmol/L (22-32); Chloride 99 mmol/L (98-107); Creatine Kinase 66 U/L (30-135); Estimated Glomerular Filt Rate > 60 mL/min (>60); Glucose 107 mg/dL (70-100); HEMOLYSIS < 15 (0-50); Lipase 89 U/L (23-300); Potassium 3.4 mmol/L (3.4-5.1); Sodium 136 mmol/L (137-145); Total Protein 6.7 g/dL (6.3-8.2)
[2023-02-06 09:20] LABS: Troponin I < 0.012 ng/mL (0.01-0.034)
--- NOTE | 2023-02-06 09:29 | DI.CT.S_ITS ---
PROCEDURE: CT ANGIO CHEST PE PROTOCOL INDICATIONS: tachycardia, SOB, Chest pressure TECHNIQUE: After the administration of intravenous contrast, 2 mm thick sections acquired from the pulmonary apices to the posterior costophrenic angles. 3-dimensional maximum intensity projection (MIP) coronal and sagittal reformats were then acquired through the thorax. For radiation dose reduction, the following was used: automated exposure control, adjustment of mA and/or kV according to patient size. COMPARISON: [facility], CT, CT ANGIO CHEST PE, 03/01/2022, 14:55. [facility], CT, CT CHEST HIGH RESOLUTION, 06/07/2022, 10:53. [facility], CR, XR CHEST 2V, 02/06/2023, 8:16. FINDINGS: Image quality: Excellent. Pulmonary arteries: Pulmonary arteries are normal in size, and demonstrate no intraluminal filling defects to suggest central pulmonary embolism. Lungs and pleura: Lungs are clear. No pleural effusions or pneumothorax. Central and peripheral airways are patent. Mediastinum: Heart size is normal, without pericardial effusion. No mediastinal or hilar adenopathy. Thoracic aorta is normal in caliber and enhancement. Esophagus is normal in caliber, without hiatal hernia. Bones and chest wall: No suspicious bony lesions. Ribs and thoracic spine appear intact throughout. Thyroid gland demonstrates no significant abnormality. No axillary or supraclavicular adenopathy. Abdomen: A lipid rich left adrenal nodule is again seen, measuring -28 Hounsfield units and 1.7 cm. The visualized portions of the upper abdominal structures are otherwise unremarkable for imaging technique. IMPRESSION: Negative for pulmonary embolism. Clear lungs. Additional findings: Lipid rich left adrenal adenoma Dictated by: Tahir Main M.D. on 02/06/2023 at 9:00 Approved by: Tahir Main M.D. on 02/06/2023 at 9:03
== END 2023-02-06 10:26 | disposition home or self-care (01) ==
PROVIDERS: Emergency Provider Emergency Medicine; Family Provider Internal Medicine; PCP Internal Medicine
DX: J06.9 Acute upper respiratory infection, unspecified (principal); R07.9 Chest pain, unspecified; R06.02 Shortness of breath; Z20.822 Contact with and (suspected) exposure to COVID-19
CPT/HCPCS: 0241U; 36415; 71046; 71275; 80053; 82550; 83690; 84484; 85025; 85379; 93005; 93010; 99284; Q9967

== ENCOUNTER → 2024-07-01 10:55 | Outpatient (CLI) | payer OTHER, SELFPAY ==
[2024-07-01 12:40] LABS: Alanine Aminotransferase 13 IU/L (<35); Albumin 4.2 g/dL (3.5-5.0); Albumin Globulin Ratio 1.5 (1.0-2.8); Alkaline Phosphatase 60 U/L (38-126); Aspartate Aminotransferase 25 IU/L (14-36); Bilirubin Total 0.5 mg/dL (0.2-1.3); Blood Urea Nitrogen 16 mg/dL (7-17); Calcium 9.2 mg/dL (8.4-10.2); Carbon Dioxide 27 mmol/L (22-32); Chloride 109 mmol/L (98-107); Cholesterol 200 mg/dL (140-199); Estimated Glomerular Filt Rate > 60 mL/min (>60); Globulin 2.8 g/dL (1.7-4.1); Glucose 92 mg/dL (70-100); HEMOLYSIS < 15 (0-50); Potassium 4.2 mmol/L (3.4-5.1); Sodium 140 mmol/L (137-145); Triglycerides 82 mg/dL (35-150)
[2024-07-01 12:48] LABS: HDL Cholesterol 116 mg/dL (40-60); LDL Cholesterol Calculated 68 mg/dL (<100)
[2024-07-01 13:08] LABS: TSH w/ Reflex to FT4 1.51 uIU/mL (0.47-4.68)
== END ==
PROVIDERS: Family Provider Internal Medicine; PCP Internal Medicine; Referring Provider Internal Medicine; Visit Provider Internal Medicine
DX: I10 Essential (primary) hypertension (principal); F33.9 Major depressive disorder, recurrent, unspecified; Z13.6 Encounter for screening for cardiovascular disorders; Z13.1 Encounter for screening for diabetes mellitus; Z13.220 Encounter for screening for lipoid disorders
CPT/HCPCS: 36415; 80053; 80061; 84443

== ENCOUNTER → 2025-02-27 14:44 | Outpatient (CLI) | payer OTHER, SELFPAY ==
--- NOTE | 2025-02-27 14:46 | DI.RAD.S_ITS ---
PROCEDURE: XR CHEST 2V INDICATIONS: dyspnea TECHNIQUE: 2 views of the chest were acquired. COMPARISON: [facility], , XR CHEST 2V, 02/06/2023, 8:16. [facility], , CHEST 2 VIEW, 05/02/2017, 11:14. FINDINGS: Surgical changes and devices: None. Lungs and pleura: Lungs are clear. No pleural effusions or pneumothorax. Mediastinum: Mediastinal contours are normal. Heart size is normal. Bones and chest wall: No suspicious bony abnormalities. Soft tissues appear unremarkable. IMPRESSION: No acute cardiopulmonary abnormality is seen. Dictated by: Fox Hale M.D. on 02/28/2025 at 11:02 Approved by: Fox Hale M.D. on 02/28/2025 at 11:03
== END ==
PROVIDERS: Family Provider Internal Medicine; PCP Internal Medicine; Referring Provider Internal Medicine; Visit Provider Internal Medicine
DX: N87.1 Moderate cervical dysplasia (principal); I10 Essential (primary) hypertension; R06.00 Dyspnea, unspecified; R87.810 Cervical high risk human papillomavirus (HPV) DNA test positive
CPT/HCPCS: 71046

== ENCOUNTER 2025-05-29 13:23 | Day surgery (SDC) | payer OTHER, SELFPAY ==
[2025-05-19 13:20] VITALS: BMI 24.1
--- NOTE | 2025-05-29 | PATH_ITS ---
[facility] Accession Number: [id number] No. of containers..03 Tissue . 01 Material submitted: . PART A: cervix - CERVICAL, LEEP CONE CUT AT 1200 PART B: endocervix - ENDOCERVICAL CURETTINGS PART C: endometrium - ENDOMETRIAL CURETTINGS . 01 Diagnosis: A. CERVIX, LEEP: Transformation zone mucosa with focal reactive changes. Negative for residual high and low-grade intraepithelial lesions, including at inked margins. Negative for invasive carcinoma. . B. ENDOCERVIX, CURTTAGE: Histologically unremarkable squamous, endocervical, and endometrial tissue. Negative for intraepithelial lesions and endometrioid intraepithelial neoplasia. . C. ENDOMETRIUM, CURETTAGE: Benign endometrial polyp. Negative for endometrioid intraepithelial neoplasia and malignancy. [facility] 06/04/2025 1619 Local . 01 Comment: Immunohistochemistry for p16 is performed with adequate controls on blocks A1, A2, A3, A4, and B1, and all are negative. . * This test was developed and the performance characteristics were validated by [facility]. It has not been cleared or approved by the U.S. Food and Drug Administration. . 01 Electronically signed: . Emily Coon DO, Pathologist NPI- [id number] . 01 Gross description: . A. Received in formalin with two identifiers and LEEP cone cut at 12 o'clock, is an incised circular fragment of cervix with the incision designating 12 o'clock, per the requisition, reapproximated to measure 2.2 cm from 12-6, 2.7 from 3-9, and 0.8 cm thick. The ectocervix is borges and finely granular. The endocervical margin is inked while the remaining stromal margins are inked blue. The specimen is serially sectioned and submitted entirely as follows: A1: 12-3. A2: 3-6. A3: 6-9. A4: 9-12. B. Received in formalin with two identifiers and endocervical curettings, are multiple borges soft tissue fragments admixed with mucohemorrhagic material received on friable Telfa paper aggregating to 1.5 x 0.9 x 0.1 cm. Filtered and submitted entirely in B1. C. Received in formalin with two identifiers and endometrial curetting, are multiple borges, soft tissue fragments admixed with mucohemorrhagic material received on friable Telfa paper aggregating to 2.7 x 2.0 x 0.3 cm. Filtered and submitted entirely in C1. ([id number]) /MRV 05/30/2025 1830 Local . 01 Pathologist provided ICD-10: N87.1, N92.0 . 01 CPT . 729559, 514387, [id number] Specimen Comment: A courtesy copy of this report has been sent to [phone] Performed at: [address] [id number] MD Milton Gonzales MD Phone: [phone]
[2025-05-29] MEDS: LACTATED RINGERS 1,000 ML 42 ML IV (13:57)
[2025-05-29] MEDS: SCOPOLAMINE 1 PATCH TOP (14:08)
[2025-05-29] MEDS: ACETAMINOPHEN 325 MG TABLET 975 MG PO (14:08)
[2025-05-29 14:12] VITALS: BP 109/79; PULSE 94; RESP 16; TEMP 36.7; O2SAT 100; BMI 24.1
--- NOTE | 2025-05-29 15:49 | PM.PREOP ---
Pre-operative Note COVID-19 COVID-19 status: Not tested Interval Note History & Physical reviewed/Exam performed by Physician: Yes Changes to H&P: No
--- NOTE | 2025-05-29 16:14 | SUR.OPER ---
Lithotomy on padded OR bed, head on pillow, arms secured on padded arm boards at <90 degrees abduction. Legs secured in padded yellow fins stirrups. All pressure points padded
[2025-05-29] MEDS: ACETIC ACID 500 ML IRRIG 20 ML TOP (16:25)
[2025-05-29 16:43] VITALS: BP 145/81; PULSE 91; RESP 15; TEMP 36.1; O2SAT 99
--- NOTE | 2025-05-29 16:48 | PM.GYNOP.1 ---
Operative Date/Time/Diagnoses Date of procedure: 05/29/25 Time of procedure: 16:10 Pre-op diagnosis: High-grade squamous dysplasia of the cervix Menorrhagia Post-op diagnosis: same Procedure & Clinicians Procedure: Procedures Operation Date: 05/29/25 15:00 Actual Procedure Side Surgeon p LEEP Procedure Macho Alonzo MD s Hysteroscopy, D&C, with mirena IUD insertion Macho Alonzo MD Indications: Nina returns today for evaluation/treatment of extremely heavy and long periods which are associated now with night sweats, vasomotor symptoms, mood changes, insomnia, and brain fog. Patient also needs contraception as she remains sexually active. Patient is bleeding today as her most recent period started 2 days ago. In addition the patient has known high-grade squamous dysplasia and to this point has been undecided about proceeding with LEEP. After complete evaluation and further discussions however the patient wishes to proceed with hysteroscopic evaluation of the uterine cavity with possible biopsies, dilation and curettage of the uterus, and placement of a Mirena IUD because of the irregular heavy bleeding she has been experiencing in the need for contraception. In addition she will also go forward with the LEEP at the same time and presents today for her scheduled surgery. Surgeon: Macho Alonzo Anesthesia Type: General Operative Notes Findings: Limited area of aceto-white epithelium at the transformation zone and extending up into the endocervical canal. The endometrial cavity is unremarkable with no focal lesions. Both tubal ostia were visualized. Closure Type: not applicable Specimen(s): endometrial curettings and other (Endocervical curettings, LEEP cone cut at 12:00) Applied: none Estimated blood loss (mL): 20 Blood products transfused: none Procedure in detail: Position, the perineum and vulva were prepped and draped in the usual manner for LEEP and hysteroscopy. The cervix was with the patient under satisfactory general anesthesia in the modified dorsal lithotomy position, the perineum and vulva were prepped and draped in the usual manner for LEEP/hysteroscopy. A pre-surgical safety time-out was then taken in accordance with [facility] OR protocols. An insulated speculum was then inserted in the vagina with smoke evacuation attach. Vinegar solution was then placed in the vagina and the area of aceto-white epithelium easily identified. Using a 15 mm x 20 mm LEEP loop electrode, 60 w pure cut energy, the LEEP specimen was easily obtained, cut at 12:00 p.m., and submitted as a separate pathologic specimen. The LEEP bed was then rendered hemostatic with ball cautery at 60 w of monopolar coagulation current. Endocervical curettings were then obtained with a [facility] curette and submitted as a separate specimen. A single tooth tenaculum was applied to the anterior lip of the cervix and the cervix was then sequentially dilated to 7 mm. Hysteroscopy then performed with the endometrial cavity found to be completely unremarkable with both tubal ostia visualized. Sharp curettage of the endometrial cavity was then performed and a separate spent of endometrial curettings was also for pathologic evaluation ablation. At that E was into the endo me for cavity in the usual manner and released. The applicator was removed and the strings trimmed to 3 L in length. The LEEP bed was again carefully inspected and there was no bleeding either from the LEEP better from within the endocervical canal. The tenaculum was removed from the anterior lip of the cervix and no bleeding was encountered. Speculum was then removed from the vagina, the patient awakened, and then transferred to the PACU for a period of observation and recovery after having tolerated the procedure well. Complications: none Post-operative Condition: stable Disposition: PACU Plan for aftercare: Routine postoperative care with follow-up in 2 weeks or as needed.
[2025-05-29 16:49] VITALS: BP 144/79; PULSE 85; RESP 13; TEMP 36.1; O2SAT 99
[2025-05-29 16:53] VITALS: BP 143/85; PULSE 81; RESP 15; TEMP 36.2; O2SAT 99
[2025-05-29 17:09] VITALS: BP 132/75; PULSE 69; RESP 14; TEMP 36.2; O2SAT 99
== END 2025-05-29 17:14 | disposition home or self-care (01) ==
LOC: OR 13:24
PROVIDERS: PCP Internal Medicine; Referring Provider Obstetrics & Gynecology; Visit Provider Obstetrics & Gynecology
PROC: 0UBC7ZZ Excision of Cervix, Via Natural or Artificial Opening (ICD-10-PCS; CPT 57522; principal; 2025-05-29 15:00)
PROC: 0UDB8ZZ Extraction of Endometrium, Via Natural or Artificial Opening Endoscopic (ICD-10-PCS; CPT 58558; 2025-05-29 15:00)
DX: N92.0 Excessive and frequent menstruation with regular cycle (principal); Z30.430 Encounter for insertion of intrauterine contraceptive device; N84.0 Polyp of corpus uteri
CPT/HCPCS: 58558; 57522; 58300; C1713; J1100; J2405; J2704; J3010; J7298

== ENCOUNTER → 2025-06-17 11:26 | Outpatient (CLI) | payer OTHER, SELFPAY ==
[2025-06-17 12:14] LABS: Add Manual Diff / Slide Review NO; Hematocrit 34.3 % (36-46); Hemoglobin 11.7 g/dL (12.0-16.0); Lymphocytes Absolute Auto 1500 /uL (1100-4500); Mean Corpuscular HGB Conc 34.1 % (30-36); Mean Corpuscular Hemoglobin 33.2 PG (26-34); Mean Corpuscular Volume 97.4 fL (80-100); Platelet Count 274 X10^3/uL (150-400)
[2025-06-17 13:15] LABS: TSH w/ Reflex to FT4 1.53 uIU/mL (0.47-4.68)
== END ==
PROVIDERS: PCP Internal Medicine; Referring Provider Obstetrics & Gynecology; Visit Provider Obstetrics & Gynecology
DX: R53.83 Other fatigue (principal)
CPT/HCPCS: 36415; 84443; 85025